=== PATIENT | male | born 1970 | race Caucasian/White ===

== ENCOUNTER 2017-04-09 08:46 | Observation (INO) ==
[2017-04-09] MEDS ORDERED: VANCOMYCIN INJ 1,000 MG in SODIUM CHLORIDE 0.9% 250 ML IV STA (09:35)
[2017-04-09] MEDS ORDERED: VANCOMYCIN 1,000 MG VIAL ONE (10:07)
[2017-04-09 10:09] LABS: Basophils # 0.1 10*3/uL (0.0-0.2); Basophils % 0.6 % (0.0-0.8); Eosinophils # 0.2 10*3/uL (0.0-0.87); Eosinophils % 1.6 % (0.00-10.9); Hematocrit 31.6 VOL% (42.0-52.0); Hemoglobin 10.3 GM/DL (14.0-18.0); Immature Granulocytes % 0.5 %; Immature Granulocytes Absolute 0.05 #; Lymphocytes # 1.2 10*3/uL (1.4-4.0); Lymphocytes % 11.9 % (21.2-54.2); Mean Corpuscular HGB Conc 32.6 GM/DL (32-36); Mean Corpuscular Hemoglobin 32 PG (27-34); Mean Corpuscular Volume 98.4 FL (87-102); Mean Platelet Volume 11.1 FL (9.6-12.0); Monocytes % 9.3 % (1.7-12.7); Neutrophils # 7.8 10*3/uL (1.4-7.4); Neutrophils % 76.1 % (38.7-73.9); Platelet Count 190 T/CUMM (130-400); Red Blood Count 3.21 MC/CUMM (3.8-5.5); Red Cell Distribution Width 12.8 % (9.3-17.3); White Blood Count 10.2 T/CUMM (4-12)
[2017-04-09 10:30] LABS: INR 0.9; PT Patient Result 9.9 SECS
[2017-04-09 10:46] LABS: Albumin 3.2 G/DL (3.4-5.0); Bilirubin,Total 0.6 MG/DL (0.2-1.0); Calcium 8.3 MG/DL (8.5-10.1); Osmolality,Calculated 290.4 MOS/KG (273-304); Potassium 4.2 MMOL/L (3.5-5.1); Total Protein 7.2 G/DL (6.4-8.3)
[2017-04-09] MEDS ORDERED: ACETAMINOPHEN 325 MG TABLET PO PRN (11:00)
[2017-04-09] MEDS ORDERED: SODIUM CHLORIDE 0.9% 1,000 ML IV SCH (11:00)
[2017-04-09] MEDS ORDERED: GLUCAGON 1 MG VIAL IM PRN (11:02)
[2017-04-09] MEDS ORDERED: DEXTROSE 50% 25 GM/50 ML VIAL IV PRN (11:02)
[2017-04-09] MEDS ORDERED: cloNIDine 0.1 MG TABLET PO PRN (12:32)
[2017-04-09] MEDS: hydrALAZINE 20 MG/1 ML VIAL IV PRN (13:08)
[2017-04-09] MEDS: INSULIN LISPRO 100 UNIT/ML SUBCUT SCH ×3 (13:08→21:58)
[2017-04-09] MEDS: MORPHINE 2 MG/1 ML SYRINGE IV PRN ×2 (14:13→20:49)
[2017-04-09] MEDS ORDERED: cloNIDine 0.1 MG TABLET PO ONE (14:15)
[2017-04-09] MEDS ORDERED: DEXTROSE 4 GM PO PRN (15:28)
[2017-04-09] MEDS ORDERED: [UNRECOGNIZED DRUG - OTHER] PO PRN (15:28)
[2017-04-09] MEDS ORDERED: MECLIZINE 25 MG TABLET PO PRN (15:28)
[2017-04-09] MEDS: SEVELAMER CARBONATE 800 MG TABLET PO SCH (16:39)
[2017-04-09] MEDS ORDERED: INSULIN NPH/REGULAR 70/30 100 UNIT/ML SUBCUT SCH (19:00)
[2017-04-09] MEDS: VALSARTAN 160 MG TABLET PO SCH (21:58)
[2017-04-09] MEDS: DOCUSATE SODIUM 100 MG CAPSULE PO SCH (21:58)
[2017-04-09] MEDS: METOPROLOL TARTRATE 25 MG TABLET PO SCH (21:59)
[2017-04-09] MEDS: ATORVASTATIN 40 MG TABLET PO SCH (21:59)
[2017-04-09] MEDS: SENNA 8.6 MG TABLET PO SCH (21:59)
[2017-04-10 04:49] LABS: Basophils # 0.1 10*3/uL (0.0-0.2); Basophils % 0.4 % (0.0-0.8); Eosinophils # 0.2 10*3/uL (0.0-0.87); Eosinophils % 1.9 % (0.00-10.9); Hematocrit 27.8 VOL% (42.0-52.0); Hemoglobin 9.6 GM/DL (14.0-18.0); Immature Granulocytes % 0.4 %; Immature Granulocytes Absolute 0.04 #; Lymphocytes # 1.8 10*3/uL (1.4-4.0); Lymphocytes % 15.6 % (21.2-54.2); Mean Corpuscular HGB Conc 34.5 GM/DL (32-36); Mean Corpuscular Hemoglobin 33 PG (27-34); Mean Corpuscular Volume 94.6 FL (87-102); Mean Platelet Volume 11.4 FL (9.6-12.0); Monocytes # 0.7 10*3/uL (0.11-0.8); Monocytes % 6.2 % (1.7-12.7); Neutrophils # 8.5 10*3/uL (1.4-7.4); Neutrophils % 75.5 % (38.7-73.9); Platelet Count 219 T/CUMM (130-400); Red Blood Count 2.94 MC/CUMM (3.8-5.5); Red Cell Distribution Width 12.9 % (9.3-17.3); White Blood Count 11.3 T/CUMM (4-12)
[2017-04-10 05:03] LABS: Calcium 8.5 MG/DL (8.5-10.1); Osmolality,Calculated 290.2 MOS/KG (273-304); Potassium 4.3 MMOL/L (3.5-5.1)
[2017-04-10] MEDS: MORPHINE 2 MG/1 ML SYRINGE IV PRN ×5 (05:15→23:02)
[2017-04-10] MEDS: hydrALAZINE 20 MG/1 ML VIAL IV PRN ×2 (06:16)
[2017-04-10] MEDS ORDERED: BUPIVACAINE 0.25% 50 ML VIAL ONE (06:29)
[2017-04-10] MEDS: METOPROLOL TARTRATE 25 MG TABLET PO SCH ×3 (06:45→20:13)
[2017-04-10] MEDS: SEVELAMER CARBONATE 800 MG TABLET PO SCH ×3 (07:15→16:38)
[2017-04-10] MEDS: INSULIN LISPRO 100 UNIT/ML SUBCUT SCH ×5 (07:15→20:14)
[2017-04-10] MEDS ORDERED: fentaNYL 100 MCG/2 ML VIAL ONE (07:59)
[2017-04-10] MEDS ORDERED: METOCLOPRAMIDE 10 MG/2 ML VIAL ONE (07:59)
[2017-04-10] MEDS ORDERED: ONDANSETRON 4 MG/2 ML VIAL ONE (07:59)
[2017-04-10] MEDS ORDERED: SEVOFLURANE 1 UNIT/15 MINUTE INH ONE (07:59)
[2017-04-10] MEDS ORDERED: MIDAZOLAM 2 MG/2 ML VIAL ONE (07:59)
[2017-04-10] MEDS ORDERED: PROPOFOL 200 MG/20 ML VIAL IV ONE (07:59)
[2017-04-10] MEDS ORDERED: INSULIN NPH/REGULAR 70/30 100 UNIT/ML SUBCUT SCH (09:00)
[2017-04-10] MEDS: VALSARTAN 160 MG TABLET PO SCH ×2 (09:07→20:13)
[2017-04-10] MEDS: ASPIRIN EC 81 MG TABLET PO SCH (09:07)
[2017-04-10] MEDS: DOCUSATE SODIUM 100 MG CAPSULE PO SCH ×2 (09:07→20:13)
[2017-04-10] MEDS: FAMOTIDINE 20 MG TABLET PO SCH (09:07)
[2017-04-10] MEDS: PANTOPRAZOLE 40 MG TABLET PO SCH (09:07)
[2017-04-10] MEDS: SENNA 8.6 MG TABLET PO SCH ×2 (09:07→20:13)
[2017-04-10] MEDS: ONDANSETRON 4 MG/2 ML VIAL IV PRN ×3 (09:08→18:45)
[2017-04-10] MEDS ORDERED: VANCOMYCIN INJ 1,250 MG in SODIUM CHLORIDE 0.9% 250 ML IV ONE (10:00)
[2017-04-10 10:22] LABS: Hepatitis A Ab IgM Result Negative (Negative); Hepatitis B Core IgM Quant 0.17 Index; Hepatitis B Core IgM Result Negative (Negative); Hepatitis B Surface Ag Quant < 0.01 Index; Hepatitis B Surface Ag Result Negative (Negative); Hepatitis C Virus Ab Quant 0.05 Index; Hepatitis C Virus Ab Result Negative (Negative)
[2017-04-10] MEDS: ATORVASTATIN 40 MG TABLET PO SCH (20:13)
[2017-04-11 05:53] LABS: Basophils # 0.1 10*3/uL (0.0-0.2); Basophils % 0.6 % (0.0-0.8); Eosinophils # 0.2 10*3/uL (0.0-0.87); Eosinophils % 1.9 % (0.00-10.9); Hemoglobin 9.1 GM/DL (14.0-18.0); Immature Granulocytes % 0.5 %; Immature Granulocytes Absolute 0.05 #; Lymphocytes # 1.5 10*3/uL (1.4-4.0); Mean Corpuscular HGB Conc 31.4 GM/DL (32-36); Mean Corpuscular Hemoglobin 32 PG (27-34); Mean Corpuscular Volume 102.8 FL (87-102); Mean Platelet Volume 11.4 FL (9.6-12.0); Monocytes # 0.8 10*3/uL (0.11-0.8); Monocytes % 7.1 % (1.7-12.7); Neutrophils # 8.2 10*3/uL (1.4-7.4); Neutrophils % 75.9 % (38.7-73.9); Platelet Count 230 T/CUMM (130-400); Red Blood Count 2.82 MC/CUMM (3.8-5.5); Red Cell Distribution Width 13.2 % (9.3-17.3); White Blood Count 10.8 T/CUMM (4-12)
[2017-04-11 06:22] LABS: Calcium 7.9 MG/DL (8.5-10.1); Potassium 5.9 MMOL/L (3.5-5.1)
[2017-04-11 06:28] LABS: Osmolality,Calculated 308.5 MOS/KG (273-304)
[2017-04-11] MEDS: MORPHINE 2 MG/1 ML SYRINGE IV PRN ×2 (06:50→14:30)
[2017-04-11] MEDS: INSULIN LISPRO 100 UNIT/ML SUBCUT SCH ×3 (08:16→16:15)
[2017-04-11] MEDS: DOCUSATE SODIUM 100 MG CAPSULE PO SCH (09:00)
[2017-04-11] MEDS: METOPROLOL TARTRATE 25 MG TABLET PO SCH (09:00)
[2017-04-11] MEDS ORDERED: INSULIN NPH/REGULAR 70/30 100 UNIT/ML SUBCUT SCH ×2 (09:00→19:00)
[2017-04-11] MEDS: VALSARTAN 160 MG TABLET PO SCH (09:00)
[2017-04-11] MEDS: SEVELAMER CARBONATE 800 MG TABLET PO SCH ×2 (09:01→13:47)
[2017-04-11] MEDS: SENNA 8.6 MG TABLET PO SCH (09:01)
[2017-04-11] MEDS: FAMOTIDINE 20 MG TABLET PO SCH (09:01)
[2017-04-11] MEDS: PANTOPRAZOLE 40 MG TABLET PO SCH (09:01)
[2017-04-11] MEDS: ASPIRIN EC 81 MG TABLET PO SCH (09:01)
[2017-04-11] MEDS ORDERED: LACTULOSE 20 GM/30 ML UDCUP PO PRN (09:06)
[2017-04-11] MEDS ORDERED: VANCOMYCIN INJ 500 MG in SODIUM CHLORIDE 0.9% 100 ML IV PRN (11:37)
[2017-04-11 14:21] VITALS: BP 143/88
[2017-04-11] MEDS ORDERED: VANCOMYCIN INJ 500 MG in SODIUM CHLORIDE 0.9% 100 ML IV ONE (15:00)
== END 2017-04-11 16:58 | disposition home or self-care (01) ==
LOC: N.ED 08:46 → N.EDINP 08:46 → SUATTDRO 09:35 → N.EDINP 11:45 → N.3E 11:54
PROVIDERS: ADMIT Internal Medicine Nephrology; ATTEND Internal Medicine